=== PATIENT | female | born 1970 | race Caucasian/White ===

== ENCOUNTER 2020-12-23 16:18 | Inpatient (IN) | payer OTHER ==
[~2020-12-23] VITALS: Ht 147.3 cm; Wt 61.2 kg
[2020-12-23 17:43] LABS: HEMOGLOBIN 14.6 gm/dl (12.3-15.3); RED BLOOD COUNT 4.57 M/UL (4.00-5.10); WHITE BLOOD COUNT 15.1 K/UL (4.5-11.0)
[2020-12-23 18:28] LABS: BUN/CREATININE RATIO 12 (0-10)
[2020-12-24 08:16] LABS: RED BLOOD COUNT 4.51 M/UL (4.00-5.10)
[2020-12-24 08:31] LABS: WHITE BLOOD COUNT 10.7 K/UL (4.5-11.0)
[2020-12-24 08:38] LABS: BUN/CREATININE RATIO 11 (0-10)
--- NOTE | 2020-12-25 11:04 | NUR ---
FOOT SOAK TO RIGHT FOOT COMPLETE. FOOT DRY AND ELEVATED. NO DISTRESS NOTED. WCTM.
[2020-12-26 05:47] LABS: HEMOGLOBIN 14.3 gm/dl (12.3-15.3); RED BLOOD COUNT 4.49 M/UL (4.00-5.10); WHITE BLOOD COUNT 8.6 K/UL (4.5-11.0)
[2020-12-26 06:11] LABS: BUN/CREATININE RATIO 10 (0-10)
[2020-12-27 05:07] LABS: BUN/CREATININE RATIO 12 (0-10)
[2020-12-27] MEDS ORDERED: CLINDAMYCIN HC300 MG PO (18:23)
== END 2020-12-27 18:59 | disposition home health service (06) | DRG 854 ==
LOC: ER1 16:18 → CDU 20:55 → M/S 20:55
PROVIDERS: Internal Medicine; Physician Assistant; ADMIT Internal Medicine
PROC: 0JBL0ZZ Excision of Right Upper Leg Subcutaneous Tissue and Fascia, Open Approach (ICD-10-PCS; principal; 2020-12-25)
DX: A41.9 Sepsis, unspecified organism (principal); L03.115 Cellulitis of right lower limb; E11.52 Type 2 diabetes mellitus with diabetic peripheral angiopathy with gangrene; I96 Gangrene, not elsewhere classified; L02.611 Cutaneous abscess of right foot; E11.621 Type 2 diabetes mellitus with foot ulcer; F17.210 Nicotine dependence, cigarettes, uncomplicated; E66.9 Obesity, unspecified; B96.89 Other specified bacterial agents as the cause of diseases classified elsewhere; Z83.3 Family history of diabetes mellitus; Z68.28 Body mass index [BMI] 28.0-28.9, adult
CPT/HCPCS: 36415; 73630; 73700; 80048; 80053; 80061; 80202; 82728; 83036; 84550; 85025; 85652; 86140; 87040; 87070; 87077; 87186; 87205; 96374; 96375; 99284; J0696; J1650; J2270; J3370; J7050; J7070; U0002

== ENCOUNTER → 2021-01-03 | Outpatient (CLI) | payer OTHER ==
[~2021-01-03] MED LIST: CLINDAMYCIN HC300 MG PO
== END ==
LOC: WCC 07:32
DX: L03.115 Cellulitis of right lower limb (principal); E11.622 Type 2 diabetes mellitus with other skin ulcer; Z72.0 Tobacco use
CPT/HCPCS: G0463

== ENCOUNTER 2021-03-29 10:44 | Emergency (ER) | payer OTHER ==
[2021-03-29 11:48] LABS: HEMOGLOBIN 15.2 gm/dl (12.3-15.3); RED BLOOD COUNT 4.83 M/UL (4.00-5.10); WHITE BLOOD COUNT 17.3 K/UL (4.5-11.0)
[2021-03-29 12:08] LABS: BUN/CREATININE RATIO 12 (0-10)
[2021-03-29] MEDS ORDERED: AUGMENTIN 875-1 EACH PO (15:43)
== END 2021-03-29 16:00 | disposition home or self-care (01) ==
LOC: ER1 10:44
PROVIDERS: Physician Assistant
DX: K35.80 Unspecified acute appendicitis (principal); R10.811 Right upper quadrant abdominal tenderness; R10.813 Right lower quadrant abdominal tenderness; R10.814 Left lower quadrant abdominal tenderness; E11.9 Type 2 diabetes mellitus without complications; Z88.1 Allergy status to other antibiotic agents; F17.200 Nicotine dependence, unspecified, uncomplicated
CPT/HCPCS: 80053; 81001; 82150; 83690; 85025; 96374; 96375; 96376; 99284; J2270; J2405; J2543; Q9967

== ENCOUNTER → 2021-09-26 | Outpatient (CLI) | payer OTHER ==
[~2021-09-26] MED LIST changes: +AUGMENTIN 875-1 EACH PO
== END ==
LOC: NM 07:59
DX: R11.0 Nausea (principal); R10.11 Right upper quadrant pain; R19.7 Diarrhea, unspecified
CPT/HCPCS: 78226; A9537

== ENCOUNTER → 2021-11-13 | Day surgery (SDC) | payer OTHER ==
[~2021-11-13] MED LIST changes: +HYDROXYZINE HCL50 MG PO; +NUEDEXTA 20-101 EACH PO; +VIIBRYD10 MG PO
== END | disposition home or self-care (01) ==
LOC: OR 08:53
DX: K31.9 Disease of stomach and duodenum, unspecified (principal); R10.10 Upper abdominal pain, unspecified; J44.9 Chronic obstructive pulmonary disease, unspecified; E11.9 Type 2 diabetes mellitus without complications; K58.2 Mixed irritable bowel syndrome; E66.3 Overweight; F17.200 Nicotine dependence, unspecified, uncomplicated; Z68.27 Body mass index [BMI] 27.0-27.9, adult; Z79.899 Other long term (current) drug therapy; Z88.6 Allergy status to analgesic agent
CPT/HCPCS: J7040